=== PATIENT | female | born 1955 | race Caucasian/White ===

== ENCOUNTER 2017-11-17 06:46 | Inpatient (IN) | payer OTHER ==
[2017-11-02 11:38] VITALS: Ht 160 cm; Wt 111.6 kg
--- NOTE | 2017-11-02 12:18 | PAT Medication Instructions ---
Service Date Nov 02, 2017. Current Home Medication List Acetaminophen (Tylenol Arthritis Ext Rel), 1,300 MG PO Q8H PRN for PRN Amoxicillin (Amoxil), 4 TABLETS PO UD Aspirin (Aspirin Chewable), 81 MG PO QAM Diclofenac (Voltaren), 75 MG PO BID PRN for PRN Fexofenadine Hcl (Jeannie Allergy), 1 TAB PO QAM Hydrochlorothiazide (Hctz), 25 MG PO QAM Metoprolol Tartrate (Lopressor), 25 MG PO BID Omeprazole (Prilosec), 20 MG PO QAM Simvastatin (Zocor), 10 MG PO HS [Dry Eye Relief], 1 DROP OPL PRN Medication Instructions For Your Scheduled Surgery -Continue as directed: Amoxicillin (Amoxil), 4 TABLETS PO UD - Hold the following medications 10 days prior to surgery: Diclofenac (Voltaren), 75 MG PO BID PRN for PRN - Hold the following medications the morning of surgery: Fexofenadine Hcl (Jeannie Allergy), 1 TAB PO QAM Hydrochlorothiazide (Hctz), 25 MG PO QAM - Take the following medications the morning of surgery with a sip of water: Acetaminophen (Tylenol Arthritis Ext Rel), 1,300 MG PO Q8H PRN for PRN (if needed, can be taken up to four hours before surgery) Aspirin (Aspirin Chewable), 81 MG PO QAM Metoprolol Tartrate (Lopressor), 25 MG PO BID Omeprazole (Prilosec), 20 MG PO QAM [Dry Eye Relief], 1 DROP OPL PRN (bring with you to the hospital) - Take the following medications as scheduled the night before surgery: Acetaminophen (Tylenol Arthritis Ext Rel), 1,300 MG PO Q8H PRN for PRN (if needed) Metoprolol Tartrate (Lopressor), 25 MG PO BID Simvastatin (Zocor), 10 MG PO HS [Dry Eye Relief], 1 DROP OPL PRN (if needed) If you have any questions please call us at [phone] or [phone] or [phone]
--- NOTE | 2017-11-02 13:12 | DIAGNOSTIC IMAGING REPORT ---
CHEST 2 VIEWS ROUTINE HISTORY: Preop. COMPARISON: Chest 10/15/2015. FINDINGS: The heart remains mildly enlarged. There are postoperative changes and an aortic valve prosthesis. Tortuous thoracic aorta. Low lung volumes. The lungs are clear. Stable enlargement of the pulmonary arteries. IMPRESSION: No significant change compared to the prior study. No acute process. Electronically signed by: Obi Mason M.D. 11/02/2017 1:10 PM Dictated Date/Time: 11/02/2017 1:03 PM
[2017-11-02 14:41] LABS: HEMATOCRIT 36.2 % (37-47); HEMOGLOBIN 11.6 g/dL (12.0-16.0); MEAN CORPUSCULAR HEMOGLOBIN 30.4 pg (25-34); MEAN PLATELET VOLUME 9.8 fL (7.4-10.4); NEUT % 64.2 %; PLATELET COUNT 299 K/uL (130-400); RED CELL DISTRIBUTION WIDTH CV 13.1 % (11.5-14.5); RED CELL DISTRIBUTION WIDTH SD 45.6 fL (36.4-46.3); WHITE BLOOD COUNT 7.45 K/uL (4.8-10.8)
[2017-11-02 14:42] LABS: BASO % 0.4 %; BASO ABS # 0.03 K/uL (0-0.2); EOS % 1.1 %; EOS ABS # 0.08 K/uL (0-0.5); IG# 0.01 K/uL (0.00-0.02); LYMPH % 25.6 %; LYMPH ABS # 1.91 K/uL (1.2-3.4); MONO % 8.6 %; MONO ABS # 0.64 K/uL (0.11-0.59); NEUT ABS # 4.78 K/uL (1.4-6.5)
[2017-11-02 14:56] LABS: PTT PATIENT 25.6 SECONDS (21.0-31.0)
[2017-11-02 15:52] LABS: CALCIUM 9.5 mg/dl (8.5-10.1); CREATININE 1.05 mg/dl (0.60-1.20); POTASSIUM 4.1 mmol/L (3.5-5.1)
--- NOTE | 2017-11-12 22:16 | HISTORY & PHYSICAL EXAMINATION ---
DATE OF ADMISSION: 11/17/2017 CHIEF COMPLAINT: Left hip pain. HISTORY OF PRESENT ILLNESS: The patient is a 62-year-old female well known to me from previous right hip replacement done about 5-1/2 years ago. She has done okay from this side, but not as well as I have expected. Over the past several months and years, she has developed increased pain and discomfort in her left hip. She has become more debilitated by this. She has had to use a cane to get around for the past couple years due to her pain. Her walking tolerance is a couple blocks at best. She describes mostly groin and thigh pain. She limps constantly. She would now like to have her hip replaced. PAST MEDICAL HISTORY: Significant for: 1. Congenital heart disease, status post cardiac valve replacement done in 05/2010. 2. Obesity with a BMI of 44. 3. Hypertension. PAST SURGICAL HISTORY: Include: 1. Aortic valve replacement in 05/2010. 2. Right total hip replacement on 06/03/2012. ALLERGIES: None. CURRENT MEDICINES: 1. Aspirin 81 mg a day. 2. Hydrochlorothiazide 3. Fexofenadine. 4. Metoprolol. 5. Simvastatin. 6. Diclofenac. SOCIAL HISTORY: A 62-year-old female. Social alcohol use. Does not smoke. She comes in with her son to clinic. FAMILY HISTORY: Noncontributory. REVIEW OF SYSTEMS: Negative for diabetes, neurologic problems, vascular problems, or bleeding disorders. No chest pain or shortness of breath. She does have this history of aortic valve replacement. She is not on any blood thinners. No history of DVT or PE. PHYSICAL EXAMINATION: GENERAL: A pleasant obese middle-aged female. Looks in reasonably good health. HEENT: Benign. NECK: Supple. No lymphadenopathy. LUNGS: Clear to auscultation. HEART: Regular rate and rhythm. ABDOMEN: Soft, nontender, nondistended. EXTREMITIES: Grossly neurovascularly intact except as follows: Examination of left hip reveals the patient walks with markedly antalgic gait. She has very stiff hip with minimal motion. She has got pain with any type of hip motion. She is neurologically intact. Negative straight leg raise. X-RAYS: X-rays of the left hip were reviewed. She has advanced left hip DJD. She has complete loss of her joint space. Chronic cortical thickening in the lateral aspect of her femur. The right hip replacement looks to be in good position. ASSESSMENT: A 62-year-old female with advanced left hip degenerative joint disease. She has become debilitated by this. She had a right hip replacement, doing okay but not as well as expected for unclear reasons. There are no signs of problems with the right hip replacement. PLAN: We talked about treatment options. She has elected to proceed with left total hip replacement. We will take her to the operating room and do a left total hip replacement. The risks and benefits of the procedure were explained to the patient include but not limited to DVT, PE, , infection, neurological injury, vascular injury, bleeding problem, pain, limited range of motion, stiffness, failure to relieve the symptoms, fracture, leg length inequality, nerve palsy, dislocation, persistent pain, etc. The patient understands and desires. Informed consent was obtained. We did talk to her about taking a metoprolol in the morning of surgery. She will stop her diclofenac 10 days preop. She should be able to be discharged to home with [facility]. Her son can assist in her care. Alternatively, she might end up going to [facility] depending on how things play out and how she is getting around. She did go to [facility] last time. BRANDY
[2017-11-17] VITALS (10 sets, daily range): BP systolic 102–144; BP diastolic 57–81; PULSE 56–75; TEMP 36.3–36.7; O2SAT 86–100
[~2017-11-17] VITALS: Ht 160 cm; Wt 111.6 kg
[~2017-11-17 06:46] MED LIST: ACET1TAB84 PO; ACETAMINOPHEN 500 MG TAB PO SCH; AMOX500T3 PO; ASPCH81X PO; BUPIVACAINE 0.5 % 5 MG/1 ML PF 10ML VIAL ONE; CEFAZOLIN 3000MG IV PUSH 22.5 ML IV SCH; DICL-201 PO; DRY EYE RELIEF OPL; FAMOTIDINE 20 MG TAB PO SCH; FEXO1TAB49 PO; GABAPENTIN 600 MG PO SCH; HYDR25TA4 PO; LACTATED RINGER'S 1000ML 1,000 ML IV SCH; LACTATED RINGER'S 1000ML 500 ML IV SCH; LACTATED RINGER'S 1000ML IV SCH; LPR25 PO; METOCLOPRAMIDE HCL 10 MG TAB PO SCH; PRLSR20 PO; SCOPOLAMINE 1.5 MG TDSY TD SCH; SIMV10TA2 PO; TRANEXAMIC ACID INJ 1,000 MG x 1 Bag Preop IV SCH
[2017-11-17] MEDS ORDERED: FENTANYL CITRATE INJ 50 MCG/1 ML 2 ML VIAL ONE (07:53)
[2017-11-17] MEDS ORDERED: MIDAZOLAM HCL 1 MG/ML 2ML VIAL ONE (07:53)
[2017-11-17] MEDS ORDERED: NURSING VERBAL MED ORDER ONE (08:45)
[2017-11-17] MEDS ORDERED: BACITRACIN 50000 UNIT VIAL ONE (08:55)
[2017-11-17] MEDS ORDERED: BUPIVACAINE/EPINEPHRINE 0.5% MPF 1:200,000 30 ML VIAL ONE (08:55)
[2017-11-17] MEDS ORDERED: LIDOCAINE HCL 1% 20 ML VIAL ONE (08:55)
--- NOTE | 2017-11-17 09:00 | History & Physical Bridge Note ---
H&P Re-Evaluation Bridge Note: I have examined the patient, reviewed the History & Physical and in the interval since the performance of the History & Physical I have noted the following changes of clinical significance: Patient also with Bilateral shoulder rotator cuff tendonitis and desires injections into shoulder. We will inject her shoulder whil under anesthesia. No other changes noted
[2017-11-17] MEDS ORDERED: GLYCOPYRROLATE INJ 0.2 MG/ML VIAL ONE (09:58)
[2017-11-17] MEDS ORDERED: LARYING-O-JET KIT (LTA) ONE (09:58)
[2017-11-17] MEDS ORDERED: DEXAMETHASONE SOD INJ 4 MG/ML VIAL ONE (09:58)
[2017-11-17] MEDS ORDERED: EpHEDrine SULFATE 50MG/5ML SYR ONE (09:58)
[2017-11-17] MEDS ORDERED: ONDANSETRON INJ 2 MG/ML 2 ML VIAL ONE (09:58)
[2017-11-17] MEDS ORDERED: NEOSTIGMINE METHYLSULFATE 5 MG/5 ML SYR ONE (09:58)
[2017-11-17] MEDS ORDERED: PROPOFOL IV EMULSION 10 MG/ML 20 ML VIAL IV ONE (09:58)
[2017-11-17] MEDS ORDERED: LIDOCAINE HCL 2% 2 ML VIAL (20MG/ML) ONE (09:58)
[2017-11-17] MEDS ORDERED: ROCURONIUM BROMIDE 10 MG/ML 5 ML VIAL IV ONE (09:58)
[2017-11-17] MEDS ORDERED: HYDROmorphone INJ 2 MG/ML SYR/VIAL ONE (10:02)
[2017-11-17] MEDS: BETAMETH SOD PHOS/ACETATE IA 6 MG/ML IA SCH ×2 (10:14→10:54)
[2017-11-17] MEDS ORDERED: ATROPINE SULFATE 0.1 MG/ML 5ML SYR IV PRN (11:15)
[2017-11-17] MEDS ORDERED: HYDROmorphone INJ 0.5 MG/0.5 ML SYR IV PRN (11:15)
[2017-11-17] MEDS ORDERED: EpHEDrine SULFATE INJ 50 MG/ML AMP IV PRN (11:15)
[2017-11-17] MEDS ORDERED: LABETALOL HCL IV 5 MG/ML 20ML IV PRN (11:15)
[2017-11-17] MEDS ORDERED: MEPERIDINE HCL 25 MG/ML CARP IV PRN (11:15)
[2017-11-17] MEDS ORDERED: ONDANSETRON INJ 2 MG/ML 2 ML VIAL IV PRN ×2 (11:15→11:30)
[2017-11-17] MEDS ORDERED: MAGNESIUM HYDROXIDE SUSP 30 ML UDC PO PRN (11:30)
[2017-11-17] MEDS ORDERED: DiphenhydrAMINE HCL 50 MG/ML VIAL IV PRN (11:30)
[2017-11-17] MEDS ORDERED: ALUMINUM/MAGNESIUM/SIMETH (MAALOX MAX) 30 ML UDC PO PRN (11:30)
[2017-11-17] MEDS ORDERED: BISACODYL 10 MG SUPP PR PRN (11:30)
[2017-11-17] MEDS ORDERED: MoRPHine SULFATE 2 MG/ML CARP IV PRN (11:30)
[2017-11-17] MEDS ORDERED: METOCLOPRAMIDE HCL INJ 5 MG/ML 2 ML VIAL IV PRN (11:30)
[2017-11-17] MEDS ORDERED: SILVER SULFADIAZINE 1% CR 50 GM JAR EXT PRN (11:30)
--- NOTE | 2017-11-17 11:30 | [facility] Post Operative Brief Note ---
Immediate Operative Summary Operative Date Nov 17, 2017. Pre-Operative Diagnosis Left hip advanced degenerative joint disease + Bilateral Shoulder Impingement Post-Operative Diagnosis Left hip advanced degenerative joint disease + Bilateral Shoulder Impingement Procedure(s) Performed Left total hip arthroplasty, uncemented; Bilateral shoulder injection Surgeon Dr. Mathews Skin Lifter Bacon Surgeon(s) Mitch Velasco PA-C Estimated Blood Loss 400cc Findings Consistent with Post-Op Diagnosis Fluids (cc crystalloids) 2000 cc Specimens A: Left femoral head Drains None Anesthesia Type General Complication(s) none Disposition Accompanied Pt To Recover: yes Disposition: Recovery Room / PACU
[2017-11-17] MEDS: FENTANYL CITRATE INJ 50 MCG/1 ML 2 ML VIAL IV PRN ×2 (11:50→12:02)
--- NOTE | 2017-11-17 12:03 | DIAGNOSTIC IMAGING REPORT ---
AP PELVIS, CROSSTABLE LATERAL LEFT HIP History: Left total hip arthroplasty. Degenerative arthritis. Postop. FINDINGS: The patient is status post a left total hip arthroplasty. The hardware is intact. No fracture or dislocation. Evidence for prior right total hip arthroplasty. Left hip skin sri are in place. IMPRESSION: Left total hip arthroplasty. No evidence for hardware complication. Electronically signed by: Obi Mason M.D. 11/17/2017 12:01 PM Dictated Date/Time: 11/17/2017 12:01 PM
--- NOTE | 2017-11-17 12:30 | Anesthesiology Progress Note ---
Anesthesia Post Op Note Date & Time Nov 17, 2017 at 12:30 Vital Signs Pain Intensity: 4 Vital Signs Past 12 Hours Date Time Temp Pulse Resp B/P (MAP) Pulse Ox O2 Delivery O2 Flow Rate FiO2 11/17/17 12:17 121/57 11/17/17 12:14 56 16 11/17/17 12:14 56 16 98 11/17/17 12:12 36.5 96 Nasal Cannula 4 11/17/17 12:11 131/70 11/17/17 12:09 58 12 11/17/17 12:09 58 12 96 11/17/17 12:08 57 19 95 11/17/17 12:08 57 19 11/17/17 12:07 119/75 11/17/17 12:03 58 19 99 11/17/17 12:03 59 19 11/17/17 12:01 134/72 11/17/17 11:58 57 15 11/17/17 11:58 58 15 98 11/17/17 11:57 135/62 11/17/17 11:53 58 17 11/17/17 11:53 58 17 100 11/17/17 11:52 56 12 100 11/17/17 11:52 56 12 11/17/17 11:51 113/74 11/17/17 11:47 58 15 99 11/17/17 11:47 57 15 11/17/17 11:46 127/71 11/17/17 11:42 99 16 100 11/17/17 11:42 99 16 11/17/17 11:41 101 16 117/81 100 11/17/17 11:41 101 16 11/17/17 11:36 105 16 130/85 100 11/17/17 11:36 105 16 11/17/17 11:32 126/84 11/17/17 11:31 112 14 11/17/17 11:31 112 14 100 11/17/17 11:31 36.4 109 14 126/84 100 Oxymask 15 11/17/17 07:55 36.4 68 20 139/62 98 Room Air Notes Mental Status: alert / awake / arousable, participated in evaluation Pt Amnestic to Procedure: Yes Nausea / Vomiting: adequately controlled Pain: adequately controlled Airway Patency, RR, SpO2: stable & adequate BP & HR: stable & adequate Hydration State: stable & adequate Anesthetic Complications: no major complications apparent
--- NOTE | 2017-11-17 14:40 | PROGRESS NOTE ---
DATE: 11/17/2017 SUBJECTIVE: A 62-year-old female postop from a left total hip placement. She is doing pretty well. She describes just a little bit of burning. Her pain, she rated it a 4/10. No chest pain or shortness of breath. Not feeling dizzy or lightheaded. OBJECTIVE: VITAL SIGNS: Temperature is 36.3. Vital signs stable. GENERAL: Physical examination shows a pleasant, middle-aged female. She is lying in bed, looks pretty comfortable. She is eating her lunch. LUNGS: Clear to auscultation. HEART: Regular rate and rhythm. ABDOMEN: Soft, nontender, nondistended. EXTREMITIES: Grossly neurovascularly intact except as follows: Examination of the left hip and leg reveals leg lengths to be equal. Her dressing is clean, dry and intact. Hip is located. She can dorsiflex and plantarflex her foot appropriately. X-RAYS: X-ray of the left hip from recovery room reviewed. It shows left uncemented total hip arthroplasty. Components looked to be in good position. No signs of problems. ASSESSMENT: A 62-year-old female postop from a left hip replacement, doing reasonably well. We also injected her shoulders. Pain is reasonably well controlled. PLAN: 1. DVT prophylaxis including thigh-high TEDs, SCDs, and aspirin twice a day. 2. PT and OT. Weight bear as tolerated. Left total hip protocol. 3. Pain control. Doing reasonably well with current pain regimen. We may have to adjust her meds as the spinal wears off. 4. Disposition: She is hoping to be discharged to home with some home health and her son's assistance once medically stable.
--- NOTE | 2017-11-17 15:36 | OPERATIVE REPORT ---
DATE OF OPERATION: 11/17/2017 SURGEON: Derrick Mathews M.D. UPHOLSTERER INSIDE: PAULA Elizabeth PREOPERATIVE DIAGNOSES: 1. Left hip degenerative joint disease. 2. Bilateral shoulder rotator cuff tendinitis and impingement. POSTOPERATIVE DIAGNOSES: 1. Left hip degenerative joint disease. 2. Bilateral shoulder rotator cuff tendinitis and impingement. PROCEDURE PERFORMED: 1. Left uncemented ceramic on highly cross-linked polyethylene total hip arthroplasty. 2. Left shoulder subacromial joint injection. 3. Right shoulder subacromial joint injection. COMPLICATIONS: None. ESTIMATED BLOOD LOSS: 400 mL. FLUID REPLACEMENT: 2000 mL crystalloid fluid replacement. ANESTHESIA: General. SPECIMENS: Left femoral head sent for pathology. OPERATIVE INDICATIONS: Patient is a 62-year-old morbidly obese female who has had a several-year history of increasing left hip pain and discomfort, unresponsive to conservative treatment. She has actually resorted to using a cane to get around for the past couple of years. X-rays show advanced hip arthritis. She had failed conservative treatment. She was tired of dealing with the pain and would like to proceed with total hip arthroplasty. The patient also had a several-month history of shoulder pain. We talked about treatment and she was wanting an injection in both shoulders while under anesthesia. OPERATIVE FINDINGS: Operative findings revealed advanced left hip DJD. She had grade 4 [id number] disease of the femoral head and acetabulum. She had large osteophytes around the acetabulum. She has fairly concentric arthritis of the acetabulum without a large medial osteophyte and even a little protrusio. She had a very stiff hip. Very large soft tissue envelope. OPERATIVE IMPLANTS: Operative implants consisted of: 1. A Biomet G7 size 52 mm acetabular shell. 2. 6.5 cancellous acetabular screws, 1 of 35 mm in length and 1 of 30 mm length. 3. A highly cross-linked polyethylene liner with a 52 mm outer diameter, and 36 mm inner diameter. 4. DePuy Corail size 13 standard femoral stem. 5. +1.5/36 mm ceramic articular ball. OPERATIVE PROCEDURE: The patient was taken to the operating room, identified and placed on the operative table in supine position. All contact areas were appropriately padded. IV antibiotics were provided by anesthesia team. A general anesthetic was implemented by anesthesia team. Lauren catheter was placed in sterile fashion. The patient received preoperative antibiotics. The right shoulder was then prepped with alcohol. I injected the right shoulder subacromial space with 2 mL of Celestone and 8 mL of 1% Marcaine. The left shoulder was then prepped with alcohol. Left shoulder subacromial space was then injected with 2 mL of Celestone and 8 mL of 1% lidocaine. The patient was then placed in the right lateral decubitus position. An axillary roll was placed. Stulberg hip positioner was used for positioning. This did take some extra time positioning her due to a large soft tissue envelope. Left hip and leg were then prepped and draped in the usual sterile fashion. Posterolateral approach to the left hip was then performed through a curvilinear incision centered over the greater trochanter. Sharp dissection was carried through the subcutaneous tissue down to the level of the IT band and gluteal fascia. Soft tissue envelope was quite thick about 6 inches in total thickness. The IT band and gluteal fascia were then incised longitudinally in line with skin incision. We had to get special retractors out to retract her tissue. Posterior capsule and external rotators were then released from the posterior aspect of the femur and as a single layer. Great care was taken throughout the procedure to protect the sciatic nerve at all times. The hip was then internally rotated and dislocated. Femoral neck osteotomy cut was made with final cut about 6 mm above the lesser trochanter. Femoral head was removed and sent for pathology. The femur was retracted anteriorly. Attention was then drawn to the acetabulum. The acetabulum labrum was excised. I then removed some osteophytes around the acetabulum, particularly posteriorly. The acetabulum was then reamed beginning with a size 47 reamer progressing up to 51. A 52 mm Biomet G7 acetabular shell was then placed in about 40 degrees of lateral opening and 20 degrees of anteversion. It was fixed with two 6.5 cancellous acetabular screws. Some large anterior osteophytes were then removed. A trial liner was then placed and attention was then drawn to the femur. The proximal femur was entered with a cookie cutter followed by canal finder. I then began broaching beginning with size 8 and progressing up to 13. We got excellent rotational control and fill with the 13 broach. I elected to use this. The calcar reamer was used to smoothen off the calcar. We then trialed different necks and heads. Her hip was fairly tight and therefore we elected to use a +1.5 articular ball. I elected to use the standard stem as the coxa vara seemed with soft tissue tension and increased offset too much. We tested the hip and it was fully stable in full extension and external rotation, flexion to 90 degrees, internal rotation to over 50 degrees. I elected to use these implants. All trial implants were removed. An apex hole eliminator was placed followed by a highly cross-linked polyethylene liner. A size 13 standard Corail femoral stem was then impacted into position. A +1.5/36 mm ceramic articular ball was placed. Hip was once again located and found to be stable. Attention was then drawn toward closing. The wound was irrigated with copious amounts of pulsatile lavage solution. I did inject locally with 60 mL of 0.5% Marcaine with epinephrine. The posterior capsule and external rotators were then repaired through drill holes in the posterior trochanter as a single layer. The IT band and gluteal fascia were then closed with #1 PDS suture in a running fashion. The subcutaneous tissue was then closed in 2 layers, the deep layer #2 Vicryl suture in a buried interrupted fashion and subcutaneous tissues with 2-0 Dexon suture in a buried interrupted fashion. The skin was then closed with skin sri. Leg was then cleaned and dried and a sterile dressing with Xeroform, 4 x 4s, ABD pad and foam tape was applied. The patient was then brought out of general anesthesia and transferred to the recovery room in stable condition. The patient tolerated the procedure well with no complications. All needle and sponge counts were correct at the end of the operation. I attest to the content of the Intraoperative Record and any orders documented therein. Any exceptions are noted below. BRANDY
[2017-11-17] MEDS: D5W AND 1/2NSS + 20MEQ KCL 1,000 ML IV SCH (16:00)
[2017-11-17] MEDS: ACETAMINOPHEN 500 MG TAB PO SCH (16:01)
[2017-11-17] MEDS: CHECK SCOPOLAMINE PATCH PLACEMENT SCH (16:02)
[2017-11-17] MEDS: KETOROLAC TROMETHAMINE 30 MG/ML VIAL IV. SCH ×2 (16:03→19:30)
[2017-11-17] MEDS ORDERED: TRANEXAMIC ACID INJ 1,000 MG in SODIUM CHLORIDE 0.9% 100ML 100 ML IV ONE (17:30)
[2017-11-17] MEDS: OXYCODONE HCL IR 5 MG TAB (IMMEDIATE RELEASE) PO PRN (18:23)
[2017-11-17] MEDS: FERROUS GLUCONATE 324 MG TAB PO SCH (18:23)
[2017-11-17] MEDS: CEFAZOLIN IV 2,000 MG in SYRINGE 0 ML IV SCH (18:39)
[2017-11-17] MEDS: ASPIRIN 81 MG ECTAB PO SCH (21:00)
[2017-11-17] MEDS: TAPENTADOL ER 50 MG TABCR PO SCH (21:00)
[2017-11-17] MEDS: SENNA 8.6 MG TAB PO SCH (21:00)
[2017-11-17] MEDS: DOCUSATE SODIUM 100 MG CAP PO SCH (21:00)
[2017-11-17] MEDS: SIMVASTATIN 10 MG TAB PO SCH (21:00)
[2017-11-17] MEDS: METOPROLOL TARTRATE 25 MG TAB PO SCH (21:00)
[2017-11-17] MEDS ORDERED: ZOLPIDEM TARTRATE 5 MG TAB PO PRN (22:00)
[2017-11-18] MEDS: CHECK SCOPOLAMINE PATCH PLACEMENT SCH ×4 (00:16→23:53)
[2017-11-18] MEDS: D5W AND 1/2NSS + 20MEQ KCL 1,000 ML IV SCH ×3 (00:18→08:35)
[2017-11-18] MEDS: ACETAMINOPHEN 500 MG TAB PO SCH ×4 (00:18→21:08)
[2017-11-18] MEDS: CEFAZOLIN IV 2,000 MG in SYRINGE 0 ML IV SCH (01:47)
[2017-11-18] MEDS: KETOROLAC TROMETHAMINE 30 MG/ML VIAL IV. SCH ×4 (01:48→21:01)
[2017-11-18 03:31] VITALS: BP 126/81; PULSE 70; TEMP 36.9; O2SAT 96
[2017-11-18 06:47] LABS: BASO % 0.1 %; BASO ABS # 0.01 K/uL (0-0.2); HEMATOCRIT 27.6 % (37-47); IG# 0.03 K/uL (0.00-0.02); LYMPH % 6.1 %; LYMPH ABS # 0.72 K/uL (1.2-3.4); MEAN CELL VOLUME 93.6 fL (80-100); MEAN CORPUSCULAR HEMOGLOBIN 30.5 pg (25-34); MEAN CORPUSCULAR HGB CONC 32.6 g/dl (32-36); MEAN PLATELET VOLUME 9.5 fL (7.4-10.4); MONO ABS # 0.83 K/uL (0.11-0.59); NEUT % 86.5 %; NEUT ABS # 10.29 K/uL (1.4-6.5); PLATELET COUNT 261 K/uL (130-400); RED CELL DISTRIBUTION WIDTH CV 12.6 % (11.5-14.5); RED CELL DISTRIBUTION WIDTH SD 43.2 fL (36.4-46.3); WHITE BLOOD COUNT 11.88 K/uL (4.8-10.8)
[2017-11-18 07:30] LABS: CALCIUM 8.2 mg/dl (8.5-10.1); CREATININE 1.13 mg/dl (0.60-1.20); POTASSIUM 4.4 mmol/L (3.5-5.1)
[2017-11-18 08:14] VITALS: BP 130/60; PULSE 70; TEMP 36.6; O2SAT 97
[2017-11-18] MEDS: MULTIVITAMIN TAB PO SCH (08:33)
[2017-11-18] MEDS: TAPENTADOL ER 50 MG TABCR PO SCH ×2 (08:33→20:57)
[2017-11-18] MEDS: METOPROLOL TARTRATE 25 MG TAB PO SCH ×2 (08:33→21:01)
[2017-11-18] MEDS: FERROUS GLUCONATE 324 MG TAB PO SCH ×3 (08:33→18:02)
[2017-11-18] MEDS: FEXOFENADINE HCL 180 MG TAB PO SCH (08:34)
[2017-11-18] MEDS: ASPIRIN 81 MG ECTAB PO SCH ×2 (08:34→21:01)
[2017-11-18] MEDS: DOCUSATE SODIUM 100 MG CAP PO SCH ×2 (08:34→21:01)
[2017-11-18] MEDS: PANTOprazole SOD 40 MG TAB PO SCH (08:35)
[2017-11-18] MEDS: HYDROCHLOROTHIAZIDE 25 MG TAB PO SCH (08:35)
[2017-11-18] MEDS ORDERED: PANTOprazole SOD 40 MG TAB PO SCH (09:00)
[2017-11-18 11:36] VITALS: BP 134/62; PULSE 67; TEMP 36.7; O2SAT 97
--- NOTE | 2017-11-18 12:46 | PROGRESS NOTE ---
DATE: 11/18/2017 SUBJECTIVE: A 62-year-old female postop day 1 from a left total hip replacement. She is doing pretty well. Pain has been controlled. Had a reasonable night. No chest pain or shortness of breath. Not feeling dizzy or lightheaded. OBJECTIVE: VITAL SIGNS: Temperature is 36.6. Vital signs stable. GENERAL: Physical examination shows a pleasant, middle-aged female. She is sitting up in bed this morning. Looks reasonably comfortable. LUNGS: Clear to auscultation. HEART: Regular rate and rhythm. ABDOMEN: Soft, nontender, nondistended. EXTREMITIES: Grossly neurovascularly intact except as follows: Examination of left hip and leg reveals leg lengths to be equal. Dressing is clean, dry and intact. She can dorsiflex and plantarflex her foot appropriately. She is neurologically intact. LABORATORY DATA: Hemoglobin 9.0. Hematocrit 27.6. White cell count 11.8. Electrolytes are stable. ASSESSMENT: A 62-year-old female postop day 1 from a left hip replacement, doing reasonably well. Pain has been controlled. Hip is located. She is neurologically intact. She is anemic, but without current symptoms. PLAN: 1. DVT prophylaxis including thigh-high TEDs, SCDs, and aspirin twice a day. 2. PT/OT. Weight bear as tolerated. Left total hip protocol. 3. Pain control. Doing reasonably well with current pain regimen. 4. Anemia. We will continue iron supplementation. We will check her H and H tomorrow. 5. Disposition: She is hoping to be discharged to home with some home health and her son's assistance once medically stable.
[2017-11-18 15:04] VITALS: BP 138/80; PULSE 74; TEMP 36.7; O2SAT 96
[2017-11-18] MEDS ORDERED: ASPI-320 PO (20:40)
[2017-11-18] MEDS ORDERED: RXC5 PO (20:40)
[2017-11-18] MEDS ORDERED: FRRG PO (20:40)
[2017-11-18] MEDS ORDERED: ACET-24 PO (20:40)
--- NOTE | 2017-11-18 20:42 | Discharge Instructions ---
Discharge Instructions Date of Service Nov 18, 2017. Admission Reason for Admission: Left Hip Degenerative Joint Disease,Inflammed Rtc Discharge Discharge Diagnosis / Problem: Left Hip Replacement Discharge Goals Goal(s): Decrease discomfort, Improve function, Increase independence, Improve disease control, Therapeutic intervention Activity Recommendations Activity Limitations: per Instructions/Follow-up section (Total Hip Precautions ) Weightbearing Status: Left weightbearing . Current Hospital Diet Patient's current hospital diet: Regular Diet Discharge Diet Recommended Diet: Regular Diet Procedures Procedures Performed: Left total hip arthroplasty, uncemented; Bilateral shoulder injection Pending Studies Studies pending at discharge: no Medical Emergencies . Who to Call and When: Medical Emergencies: If at any time you feel your situation is an emergency, please call 911 immediately. . Non-Emergent Contact Non-Emergency issues call your: Surgeon . "Provider Documentation" section prepared by Derrick Mathews. .
[2017-11-18 21:00] VITALS: BP 119/74; PULSE 73
[2017-11-18] MEDS: SIMVASTATIN 10 MG TAB PO SCH (21:01)
[2017-11-18] MEDS: SENNA 8.6 MG TAB PO SCH (21:01)
[2017-11-18 22:46] VITALS: BP 108/68; PULSE 65; TEMP 36.5; O2SAT 93
[2017-11-19] MEDS: KETOROLAC TROMETHAMINE 30 MG/ML VIAL IV. SCH ×2 (01:49→07:17)
[2017-11-19] MEDS: ACETAMINOPHEN 500 MG TAB PO SCH (05:43)
[2017-11-19 05:54] LABS: HEMOGLOBIN 8.5 g/dL (12.0-16.0); MEAN CELL VOLUME 93.9 fL (80-100); MEAN CORPUSCULAR HEMOGLOBIN 30.7 pg (25-34); MEAN CORPUSCULAR HGB CONC 32.7 g/dl (32-36); PLATELET COUNT 215 K/uL (130-400); RED CELL DISTRIBUTION WIDTH SD 44.5 fL (36.4-46.3); WHITE BLOOD COUNT 9.78 K/uL (4.8-10.8)
[2017-11-19] MEDS: CHECK SCOPOLAMINE PATCH PLACEMENT SCH (07:17)
[2017-11-19 07:20] VITALS: BP 131/79; PULSE 63; TEMP 36.4; O2SAT 94
[2017-11-19 08:10] VITALS: BP 131/79; PULSE 63; TEMP 36.4; O2SAT 94
--- NOTE | 2017-11-19 08:25 | PROGRESS NOTE ---
DATE: 11/19/2017 SUBJECTIVE: This is a 62-year-old female postop day 2 from a left hip replacement. She is doing reasonably well. Pain is controlled. No chest pain or shortness of breath. Not feeling dizzy or lightheaded. OBJECTIVE: VITAL SIGNS: Temperature 36.5. Vital signs stable. PHYSICAL EXAMINATION: GENERAL: Reveals a pleasant, middle-aged female. She is lying in bed, looks pretty comfortable. EXTREMITIES: Examination of the left hip and leg reveals the dressing to be in place. Her leg lengths are equal. Hip is located. She is neurologically intact. LABORATORY DATA: Hemoglobin 8.5. Hematocrit 26.0. ASSESSMENT: This is a 62-year-old female postop day 2 from a left total hip replacement, doing reasonably well. Pain is controlled. Hip is located. She is neurologically intact. She is anemic, but somewhat chronically anemic and without symptoms. PLAN: 1. DVT prophylaxis including thigh-high TEDs, SCDs, and aspirin twice a day. 2. PT/OT. Weightbear as tolerated. Left total hip protocol. 3. Pain control, doing well with current pain regimen. 4. Anemia. We will continue iron supplementation. 5. Disposition. She is hoping to be discharged to home with some home health.
[2017-11-19] MEDS: TAPENTADOL ER 50 MG TABCR PO SCH (08:52)
[2017-11-19] MEDS: FERROUS GLUCONATE 324 MG TAB PO SCH (08:54)
[2017-11-19] MEDS: ASPIRIN 81 MG ECTAB PO SCH (08:54)
[2017-11-19] MEDS: FEXOFENADINE HCL 180 MG TAB PO SCH (08:54)
[2017-11-19] MEDS: HYDROCHLOROTHIAZIDE 25 MG TAB PO SCH (08:54)
[2017-11-19] MEDS: PANTOprazole SOD 40 MG TAB PO SCH (08:55)
[2017-11-19] MEDS: DOCUSATE SODIUM 100 MG CAP PO SCH (08:55)
[2017-11-19] MEDS: MULTIVITAMIN TAB PO SCH (08:55)
[2017-11-19] MEDS: METOPROLOL TARTRATE 25 MG TAB PO SCH (08:55)
[2017-11-19] MEDS: OXYCODONE HCL IR 5 MG TAB (IMMEDIATE RELEASE) PO PRN (08:58)
[2017-11-19 09:04] VITALS: BP 136/80; PULSE 63; O2SAT 93
--- NOTE | 2017-11-19 09:20 | Discharge Instructions ---
Discharge Instructions Date of Service Nov 19, 2017. Admission Reason for Admission: Left Hip Degenerative Joint Disease,Inflammed Rtc Discharge Discharge Diagnosis / Problem: Left hip djd Discharge Goals Goal(s): Decrease discomfort, Improve function, Therapeutic intervention Activity Recommendations Activity Limitations: per Instructions/Follow-up section Weightbearing Status: Left weightbearing (as tolerated) . Instructions / Follow-Up Instructions / Follow-Up ACTIVITY RECOMMENDATIONS: Physical Therapy: * Aggressive physical therapy is not usually needed. You will learn to take care of yourself safely and walk. * Follow the "Hip Precautions Instructions." * In some cases, the social work lecturer at the hospital will arrange to have a therapist come to your house for the first couple of weeks to help you learn these skills. * You need to practice on your own or with the help of a family member as needed. * When you learn these skills, most of the therapy can be done on your own. Home Exercise: * You were shown a series of exercises in the hospital. Do these exercises three to four times each day including the exercises you were shown in physical therapy. Walking: * Get up and walk several times each day. For the first four weeks, try not to stand or walk for more than one hour at a time. If you do stand or walk for more than one hour, you will not hurt anything, but your leg will likely swell. * As you feel comfortable, you may change from the walker or crutches to a cane and then to independent walking. MEDICATIONS: New Medicine: * You will likely be taking one or more of these medicines: 1. Oxycodone - Take, as directed, when you need it, every four to six hours to control your pain. 2. Iron Sulfate - Take three times each day for the month after surgery to help you replace the blood lost during surgery. 3. Aspirin - Thins your blood to lessen the chance of forming a blood clot. * The most common side effects of pain medicine and iron are nausea and constipation. If nausea or constipation is too much of a problem or if you have any questions about your new medicines or doses, call [facility] at . We will try to help you manage these issues. VERY IMPORTANT TO READ AND REVIEW" Pain: * The immediate post-operative period after hip replacement surgery is often quite painful. * You are given a prescription for pain medicine. You should take it, as directed, when you need it, especially before physical therapy and before going to bed. Pain that interferes with sleep is very common and can last several months. * You will likely need pain medicine for the first two to four weeks. It will not stop all of the pain. The pain will lessen and as you feel better, you may change to milder pain medicine such as Tylenol. * The most common side effects of pain medicine are nausea and constipation, so don't take more than you need. SPECIAL CARE INSTRUCTIONS: TEDs/Elastic Stockings: * The white elastic stockings help limit swelling and prevent blood clots from forming in your legs. The more you wear them, the more they work. * Wear them for six weeks. Prevention of Infection: * Take antibiotics one hour before any dental cleaning, dental work, urological procedure, gastrointestinal procedure or any invasive surgery in order to prevent your new joint from getting infected. * You may get the antibiotics from the doctor performing the procedure or you may call our office at before and we will call in a prescription to the pharmacy of your choice. Things to Watch For: * Drainage from the incision site that occurs more than one week after your surgery. * Severely increased leg pain or swelling. * Increased redness at the incision site. * Fever above 102 degrees Fahrenheit. * Unusual chest pain or shortness of breath. * Unusual pain or burning with urination. Call [facility] at with any of the above problems or if you have any questions about your medicines or recovery. FOLLOW UP VISIT: Make an appointment to see your doctor for approximately two weeks after surgery for a progress check and staple removal by calling the office at . Current Hospital Diet Patient's current hospital diet: Regular Diet Discharge Diet Recommended Diet: Regular Diet Procedures Procedures Performed: Left total hip arthroplasty, uncemented; Bilateral shoulder injection Pending Studies Studies pending at discharge: no Medical Emergencies . Who to Call and When: Medical Emergencies: If at any time you feel your situation is an emergency, please call [phone] immediately. . Non-Emergent Contact Non-Emergency issues call your: Surgeon . "Provider Documentation" section prepared by Mitch Velasco. .
[2017-11-19 11:10] VITALS: BP 143/68
== END 2017-11-19 13:07 | disposition home health service (06) | DRG 470 ==
LOC: C.ACU 06:46 → C.3E 07:20 → ENRESERV 12:20
PROVIDERS: ADMIT Orthopaedic Surgery Sports Medicine; ATTEND Orthopaedic Surgery Sports Medicine
PROC: 3E0U33Z Introduction of Anti-inflammatory into Joints, Percutaneous Approach (ICD-10-PCS; principal; 2017-11-17 09:00)
PROC: 0SRB04A Replacement of Left Hip Joint with Ceramic on Polyethylene Synthetic Substitute, Uncemented, Open Approach (ICD-10-PCS; principal; 2017-11-17 09:00)
PROC: 3E0U3BZ Introduction of Anesthetic Agent into Joints, Percutaneous Approach (ICD-10-PCS; principal; 2017-11-17 09:00)
DX: M16.12 Unilateral primary osteoarthritis, left hip (principal); Z68.41 Body mass index [BMI] 40.0-44.9, adult; M75.81 Other shoulder lesions, right shoulder; M25.811 Other specified joint disorders, right shoulder; M75.82 Other shoulder lesions, left shoulder; M25.812 Other specified joint disorders, left shoulder; D64.9 Anemia, unspecified; I10 Essential (primary) hypertension; E78.5 Hyperlipidemia, unspecified; K21.9 Gastro-esophageal reflux disease without esophagitis; E66.01 Morbid (severe) obesity due to excess calories; Q24.9 Congenital malformation of heart, unspecified; Z95.2 Presence of prosthetic heart valve; Z96.641 Presence of right artificial hip joint; Z79.1 Long term (current) use of non-steroidal anti-inflammatories (NSAID); Z79.82 Long term (current) use of aspirin; Z79.899 Other long term (current) drug therapy; Z91.048 Other nonmedicinal substance allergy status